=== PATIENT | male | born 1955 | race Caucasian/White ===

== ENCOUNTER 2018-05-03 13:53 | Emergency (ER) | payer MEDICAID ==
[2018-05-03 14:08] VITALS: BP 145/83; PULSE 67; RESP 16; TEMP 97.7; O2SAT 98
--- NOTE | 2018-05-03 14:24 | ED PDOC ---
Upper Extremity Pain/Injury Time Seen by Provider: 05/03/18 14:10 Chief Complaint (Nursing): Upper Extremity Problem/Injury Chief Complaint (Provider): Right Shoulder Pain, Cough/Congestion History Per: Patient History/Exam Limitations: no limitations Onset/Duration Of Symptoms: Days (x1 month shoulder pain, x2 weeks congestion) Current Symptoms Are (Timing): Still Present Additional Complaint(s): 63 year old male presents to the ED for evaluation of right shoulder pain described as tightness for the past month, not improved with over the counter "[place] medicine." He notes that he sleeps with his right arm outstretched at night and feels tingling in his fingers when he does that. 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 Additionally, he is reporting cough and congestion for the past two weeks, and admits to smoking intermittently. PMD: Rhoda Krishnamurthy Past Medical History Reviewed: Historical Data, Nursing Documentation, Vital Signs Vital Signs: Last Vital Signs Temp 97.7 F 05/03/18 14:04 Pulse 67 05/03/18 14:04 Resp 16 05/03/18 14:04 BP 145/83 05/03/18 14:04 Pulse Ox 98 05/03/18 14:04 - Medical History PMH: Arthritis, HTN, Hypercholesterolemia - Surgical History Surgical History: No Surg Hx - Family History Family History: States: Unknown Family Hx - Social History Current smoker - smoking cessation education provided: Yes Alcohol: None Drugs: Denies - Home Medications Home Medications: Ambulatory Orders Medication Instructions Recorded Albuterol HFA [Ventolin HFA 90 1 puff IH Q4 PRN #1 unit 06/09/14 mcg/actuation (8 g)] Azithromycin [Zithromax Z-Yaw] 250 mg PO DAILY #1 packet 06/09/14 Benzonatate [Tessalon Perles] 200 mg PO Q8H PRN #30 tab 06/09/14 Azithromycin [Zithromax] 250 mg PO DAILY #6 cap 12/22/14 Naproxen [Naprosyn] 500 mg PO Q12H #20 tab 12/22/14 Naproxen 375 mg PO Q8 PRN #21 tablet 05/03/18 - Allergies Allergies/Adverse Reactions: Allergies Allergy/AdvReac Type Severity Reaction Status Date / Time No Known Allergies Allergy Verified 05/03/18 14:04 Review of Systems ROS Statement: Except As Marked, All Systems Reviewed And Found Negative ENT: Positive for: Nose Congestion Respiratory: Positive for: Cough Musculoskeletal: Positive for: Shoulder Pain (right, described as tightness) Neurological: Positive for: Other (tingling in fingers when sleeping on arm outstretched) Physical Exam - Reviewed Nursing Documentation Reviewed: Yes Vital Signs Reviewed: Yes - Physical Exam Appears: Positive for: No Acute Distress Eye Exam: Positive for: Normal appearance ENT: Positive for: Normal ENT Inspection. Negative for: Pharyngeal Erythema, Tonsillar Exudate, Tonsillar Swelling Neck: Positive for: Normal, Painless ROM, Supple Cardiovascular/Chest: Positive for: Regular Rate, Rhythm Respiratory: Positive for: Normal Breath Sounds. Negative for: Respiratory Distress Extremity: Positive for: Normal ROM (of right shoulder), Other (5/5 strength bilateral upper extremitites). Negative for: Tenderness (no bony tenderness noted to right shoulder), Deformity Neurologic/Psych: Positive for: Alert, Oriented (x3). Negative for: Motor/Sensory Deficits - ECG O2 Sat by Pulse Oximetry: 98 (RA) Pulse Ox Interpretation: Normal - Progress ED Course And Treament: XRY OF RIGHT SHOULDER: WNL XRY OF CHEST: WNL Medical Decision Making Medical Decision Making: Time: 1414 Initial Impression: right shoulder pain, cough/ congestion Initial Plan: --CXR --Right shoulder XR Scribe Attestation: Documented by Jannet Tanner acting as a scribe for Jian Trujillo PA-C. Provider Scribe Attestation: All medical record entries made by the Scribe were at my direction and personally dictated by me. I have reviewed the chart and agree that the record accurately reflects my personal performance of the history, physical exam, medical decision making, and the department course for this patient. I have also personally directed, reviewed, and agree with the discharge instructions and disposition. Disposition - Clinical Impression Clinical Impression: Shoulder pain - Patient ED Disposition Is Patient to be Admitted: No - Disposition Disposition: Routine/Home Disposition Time: 14:43 Condition: FAIR Prescriptions: Naproxen 375 mg PO Q8 PRN #21 tablet PRN Reason: Pain, Moderate (4-7) Instructions: Shoulder Pain (DC) Forms: [facility] ED School/Work Excuse
--- NOTE | 2018-05-03 16:11 | RAD ---
Date of service: 05/03/2018 HISTORY: COUGH COMPARISON: Comparison chest 12/22/2014. TECHNIQUE: Chest PA and lateral FINDINGS: LUNGS: No active pulmonary disease. PLEURA: No significant pleural effusion identified. No pneumothorax apparent. CARDIOVASCULAR: No aortic atherosclerotic calcification present. Normal cardiac size. No pulmonary vascular congestion. OSSEOUS STRUCTURES: Mild multilevel degenerative spondylosis of the thoracic spine VISUALIZED UPPER ABDOMEN: Normal. OTHER FINDINGS: None. IMPRESSION: No active disease.
--- NOTE | 2018-05-03 16:11 | RAD ---
Date of service: 05/03/2018 PROCEDURE: Radiographs of the Right Shoulder HISTORY: SHOULDER PAIN COMPARISON: No prior. FINDINGS: BONES: No evidence of acute displaced fracture nor dislocation. 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 OTHER FINDINGS: None. IMPRESSION: No acute fractures. Mild DJD
== END 2018-05-03 15:00 | disposition home or self-care (01) ==
LOC: H.ER 13:53
DX: M25.511 Pain in right shoulder (principal); E78.00 Pure hypercholesterolemia, unspecified; I10 Essential (primary) hypertension; F17.200 Nicotine dependence, unspecified, uncomplicated; R05 Cough